=== PATIENT | male | born 1945 | race Caucasian/White ===

== ENCOUNTER 2017-01-29 17:26 | Emergency (ER) | payer MEDICARE ==
[~2017-01-29] VITALS: Ht 185.4 cm; Wt 103.6 kg
[~2017-01-29 17:26] MED LIST: ACIT25CA PO; ADAL40KI SQ; AMLO5TAB2 PO; ASPI-973 PO; CLOB15CR2 TP; FINA5TAB9 PO; HYDR25TA4 PO; OXYB5TAB PO; SIMV20TA4 PO; TERA10CA5 PO
[2017-01-29 17:43] VITALS: BP 175/81; PULSE 73; RESP 20; O2SAT 98
--- NOTE | 2017-01-29 18:33 | ED.REPORT ---
HPI-Abd Pain M 40 and Over Date of Service Jan 29, 2017 ED Provider: Andrade Forrester DO A 71 year old male with a history of enlarged prostate, diverticulitis and aortic aneurysm presents to the ED complaining of hematuria. The pt noticed clear urine with blood clots one week ago, and the hematuria has been worsening since. He is concerned that he may have a UTI. The pt denies abdominal or back pain. Nursing Notes Stated Complaint: POSS UTI/PEEING BLOOD CLOTS Chief Complaint: Male Abdominal Pain Nursing Notes Reviewed: Yes Allergies: Coded Allergies: lisinopril (Verified Allergy, Severe, ANGIOEDEMA, 01/29/17) Scheduled Acitretin (Acitretin) 25 Mg Capsule 25 MG PO DAILYWD Amlodipine (Amlodipine) 5 Mg Tablet 5 MG PO DAILY Aspirin (Aspirin) 81 Mg Tablet 81 MG PO DAILY Clobetasol Propionate (Clobetasol Propionate) 15 Gm Cream..g. 1 APPLIC TP BID Finasteride (Finasteride) 5 Mg Tablet 5 MG PO DAILY Hydrochlorothiazide (Hydrochlorothiazide) 25 Mg Tablet 25 MG PO DAILY Oxybutynin Chloride ER (Oxybutynin Chloride ER) 5 Mg Tab.er.24 5 MG PO DAILY Simvastatin (Simvastatin) 20 Mg Tablet 20 MG PO HS Terazosin (Terazosin) 10 Mg Capsule 10 MG PO HS Miscellaneous Medications Adalimumab (Humira) 40 Mg/0.8 Ml Kit 40 MG SQ WEEKLY General Time Seen by MD: 18:32 Chief Complaint Other (Hematuria) Hx Obtained From: Patient Arrived By: Walk-in Sudden in Onset?: No Onset Occurred: 1 week ago Recent Healthcare: No recent hospitalization, Recent doctor visit Similar Sx Previous: Yes Past Medical History Past Medical History psoriasis enlarged prostate diverticulitis aortic aneurysm - monitored Past Surgical History Stent placed Family History Noncontributory Smoking History Former Smoker Social History Other Social History: Ambulatory Status Independent Review of Systems Respiratory: Denies: Non-productive cough, Shortness of breath Cardiovascular: Denies: Chest pain GI: Denies: Abdominal pain, Vomiting Male: Reports Hematuria, Denies Flank pain Musculoskeletal: Denies: Back pain, Neck pain Complete sys rev & neg: except as marked. Physical Exam Initial Vital Signs Vital Signs (First) Date Time Temp Pulse Resp B/P Pulse Ox O2 Delivery O2 Flow Rate FiO2 01/29/17 17:43 36.7 73 20 175/81 98 Room Air Initial VS: Reviewed General/Constitutional: Awake, Alert Respiratory / Chest: Atraumatic, Breath sounds NL, Breath sounds = bilat, No respiratory distress Cardiovascular: Heart rate NL, Regular rhythm, Heart sounds NL Abdomen: Atraumatic, Soft, Non-tender Back: Atraumatic, Full range of motion Head / Eyes: Atraumatic, Normocephalic, PERRL, EOMI ENT: Atraumatic, Airway patent, Mucous membranes moist Skin: Atraumatic, Color NL, No rash, Warm, Dry Neurologic: Oriented X3, Speech NL, No motor deficits, No sensory deficits Neck: Atraumatic, Supple, Full range of motion Upper Extremity / MS: Atraumatic, Full range of motion Lower Extremity / Pelvis / MS: Atraumatic, Full range of motion Psychiatric: Affect NL, Mood NL Interpretation & Diagnostics Interpretation & Diagnostics: CT KUB: IMPRESSION: 1. No renal stone hydronephrosis. 2. There is a 12 mm stone within the bladder. 3. Markedly enlarged prostate. 4. Cholelithiasis. No evidence for acute cholecystitis. 5. Diverticulosis. No acute diverticulitis. 6. A large amount of stool in colon. 7. Mild infrarenal abdominal aortic aneurysm measuring 3.2 cm in diameter. 8.. Extensive atherosclerosis. There is bilateral iliac artery stenosis. 9. Small pericardial effusion. 10. Small hiatal hernia. Dictated by: Quinton Hart M.D. on 01/29/2017 at 20:17 Approved by: Quinton Hart M.D. on 01/29/2017 at 20:29 Lab Results Interpretation Result Diagram: 01/29/17 1900 01/29/17 1900 Test 01/29/17 18:37 01/29/17 19:00 Urine Color Dark yellow (YELLOW) Urine Appearance Turbid (CLEAR,HAZY) Urine pH 5.5 (5.0-8.0) Urine Specific [place] 1.026 (1.003-1.035) Urine Protein 30mg/dL (NEG,TRACE) Urine Glucose (UA) Negativemg/dL (NEGATIVE) Urine Ketones Tracemg/dL (NEGATIVE) Urine Occult Blood Large (NEGATIVE) Urine Nitrite Negative (NEGATIVE) Urine Bilirubin Negative (NEGATIVE) Urine Urobilinogen Normalmg/dL (NORMAL) Urine Leukocyte Esterase Large (NEGATIVE) Urine RBC 3-10/hpf (0-2) Urine WBC >50/hpf (0-5) Urine Epithelial Cells Few/hpf (NONE-MOD) Urine Crystals None seen (NONE SEEN) Urine Bacteria Many/hpf (NONE-FEW) Urine Hyaline Casts None/lpf (NONE) Urine Granular Casts None seen (NONE SEEN) Urine Waxy Casts None seen (NONE SEEN) Urine Red Blood Cell Casts None seen (NONE SEEN) Urine White Blood Cell Casts None seen (NONE SEEN) Urine Mucus None seen (None Seen) Urine Trichomonas None seen (NONE SEEN) Urine Yeast None (NONE SEEN) Urinalysis Comment None Urine Culture Reflexed Indicated White Blood Count 7.7th/mm3 (3.8-10.1) Red Blood Count 5.15mil/mm3 (4.40-5.80) Hemoglobin 14.9g/dL (13.8-17.2) Hematocrit 43.2% (41.0-50.0) Mean Corpuscular Volume 83.9fL (81-100) Mean Corpuscular Hemoglobin 28.9pg (27.0-35.0) Mean Corpuscular Hemoglobin Concent 34.5% (32.0-37.0) Red Cell Distribution Width 14.2% (12.3-15.4) Platelet Count 268bil/L (150-400) Neutrophils (%) (Auto) 64.9% (40-74) Lymphocytes (%) (Auto) 22.6% (14-46) Monocytes (%) (Auto) 8.0% (4-12) Eosinophils (%) (Auto) 3.5% (0-5) Basophils (%) (Auto) 0.4% (0-3) Sodium Level 142mEq/L (134-144) Potassium Level 4.1mEq/L (3.5-5.2) Chloride Level 99mEq/L (97-108) Carbon Dioxide Level 25mmol/L (18-29) Blood Urea Nitrogen 25mg/dL (8-27) Creatinine 1.28mg/dL (0.76-1.27) Estimat Glomerular Filtration Rate 59mL/min (>59) Glucose Level 135mg/dL (60-99) Calcium Level 10.3mg/dL (8.5-10.1) Total Bilirubin 0.3mg/dL (0.0-1.2) Aspartate Amino Transf (AST/SGOT) 41U/L (0-50) Alanine Aminotransferase (ALT/SGPT) 56U/L (0-44) Alkaline Phosphatase 64U/L (25-160) Total Protein 7.7g/dL (6.4-8.4) Albumin 4.2g/dL (3.4-5.0) Hold Claudio Top Tube Received (Received) Pulse Oximetry Interpretation Pulse Oximetry Interpretation: 98% on room air Pulse Oximetry: Pulse Ox normal Re-Eval/Medical Decision Med Decision/Clinical Course Diagnostics are consistent with cystitis and possibly prostatitis. First dose of IV antibiotics infused. I consulted with the on-call physician for Dr. Carrero. We will treat with twice a day ciprofloxacin. I gave E ciprofloxacin warnings including the tendinopathy and Clostridium difficile. Due to the fact that he is sure of prostate disease and he may walk prostatitis I felt this antibiotic is indicated for its capabilities to penetrate the prostate. I do recommend close follow-up with his urologist this week. Source of Hx: Old records Time of Eval: 21:01 Patient Status: Condition improved Re-Evaluation/Progress Note: Pt rechecked, who is comfortable. The diagnosis and plan for discharge are discussed. The pt understands and agrees with the plan. All questions are addressed at this time. Consultation : Call Returned at: 21:24 [employer]: Agrees with eval Note: Spoke with the doctor wall covering contractor for Dr. Neri, pt's PCP, regarding pt's case. Dr. Neri will be informed of the pt's condition. Counseled Regarding: Diagnosis, Lab results, Need for follow-up, When/why to return to ED Discharge & Departure Primary Impression: Urinary tract infection Urinary tract infection type: site unspecified Hematuria presence: with hematuria Qualified Code: N39.0 - Urinary tract infection, site not specified Additional Impression: Bladder stone Disposition: Home Vital Signs - All Vital Signs Date Time Temp Pulse Resp B/P Pulse Ox O2 Delivery O2 Flow Rate FiO2 01/29/17 21:26 36.7 70 16 147/57 97 Room Air 01/29/17 17:43 36.7 73 20 175/81 98 Room Air )( All Prior VS Reviewed: Yes Condition: Stable Patient Instructions: Urinary Tract Infection in Men (ED) Additional Instructions: Take Cipro twice daily for 10 days. Stop taking this medication if you develop joint tenderness or pain because it can be associated with joint rupture. Discontinue the medication if you develop diarrhea. Follow up on your urine culture this week. Call you primary care physician in the morning to arrange this appointment. Also call Dr. Gunderson in the morning to arrange a follow up appointment this week. Follow up on your CT scan results during this appointment. Return to the emergency department if you develop any new or worsening symptoms. Referrals: Wellington Neri MD (PCP) Evette Gunderson MD, Elizabeth A MD Scribe Attestation Portions of this note were transcribed by Eric Simms. I, Dr. Forrester personally performed the history, physical exam and medical decision-making; I reviewed and confirmed the accuracy of the information in the transcribed note. Signed by: Eli Hartman, 01/29/2017 and 2118. copies to: Evette Gunderson MD; Glenna Oviedo MD; Wellington Neri MD, Todd P DO Jan 29, 2017 18:33 ERIC SIMMS Jan 29, 2017 18:47
[2017-01-29 19:10] LABS: BASOPHILS % (AUTO) 0.4 % (0-3); EOSINOPHILS % (AUTO) 3.5 % (0-5); Mean Corpuscular Hemoglobin 28.9 pg (27.0-35.0); Mean Corpuscular Volume 83.9 fL (81-100); NEUTROPHILS % (AUTO) 64.9 % (40-74); Platelet Count 268 bil/L (150-400)
[2017-01-29 19:21] LABS: APPEARANCE,URINE TURBID (CLEAR,HAZY); COLOR,URINE DARK YELLOW (YELLOW); OCCULT BLOOD,URINE LARGE (NEGATIVE); PH,URINE 5.5 (5.0-8.0); UROBILINOGEN,URINE NORMAL (NORMAL)
[2017-01-29] MEDS ORDERED: cefTRIAXone Inj 2,000 MG in Dextrose 5% Minibag Plus 50 ML IV ONE (19:30)
--- NOTE | 2017-01-29 20:31 | DRSVH ---
PROCEDURE: CT KUB ([id number]) INDICATIONS: hematuria TECHNIQUE: Noncontrast 5 mm thick sections acquired from the diaphragms to the symphysis. 5 mm thick coronal an d sagittal reformats were then performed. For radiation dose reduction, the following was used: aut omated exposure control, adjustment of mA and/or kV according to patient size. COMPARISON: None. FINDINGS: Image quality: Excellent. Lung bases: A couple groundglass nodules are seen in the right lower lobe measuring 1.1 cm. Heart si ze is normal. There is a small pericardial effusion. Coronary calcification consistent with atherosc lerosis. Small hiatal hernia. Urinary system: Both kidneys are normal in size. No kidney stones. No hydronephrosis or perinephri c fat stranding. Both ureters appear non-dilated throughout their expected courses. Bladder wall th ickness is normal; no calcified bladder stones. Prostate is enlarged. There is a 12 mm calcific dens ity in the left bladder base, consistent with a urinary stone. Markedly enlarged prostate. Other solid organs: Liver and spleen are normal in size. Gallbladder is contains gallstones. No CT evidence for acute cholecystitis. Pancreas is normal in contours. No adrenal nodules. Peritoneum and bowel: Unenhanced bowel loops demonstrate normal wall thickness and caliber. There a re numerous colonic diverticula. No active diverticulitis. A large amount of stool in colon. No free fluid or air. Nodes and vessels: No retroperitoneal or mesenteric adenopathy by size criteria. There is infrarena l abdominal aortic aneurysm measuring 3.2 cm. There is severe atherosclerosis in the abdominal aorta and iliac arteries. There is a stent in the left common iliac artery. Bilateral iliac artery stenosis . Abdominal wall: No ventral hernias. Pelvis: No free pelvic fluid. No inguinal hernias or adenopathy. Bones: No suspicious bony lesions. No vertebral body compression fractures. Severe degenerative di sc disease in lumbar spine. IMPRESSION: 1. No renal stone hydronephrosis. 2. There is a 12 mm stone within the bladder. 3. Markedly enlarged prostate. 4. Cholelithiasis. No evidence for acute cholecystitis. 5. Diverticulosis. No acute diverticulitis. 6. A large amount of stool in colon. 7. Mild infrarenal abdominal aortic aneurysm measuring 3.2 cm in diameter. 8.. Extensive atherosclerosis. There is bilateral iliac artery stenosis. 9. Small pericardial effusion. 10. Small hiatal hernia. Dictated by: Quinton Hart M.D. on 01/29/2017 at 20:17 Approved by: Quinton Hart M.D. on 01/29/2017 at 20:29
[2017-01-29 21:26] VITALS: BP 147/57; PULSE 70; RESP 16; O2SAT 97
[2017-02-28] MEDS ORDERED: SIMV20TA4 PO (09:59)
[2017-02-28] MEDS ORDERED: CLOB15CR2 TP (09:59)
[2017-02-28] MEDS ORDERED: METF1000 PO (09:59)
[2017-02-28] MEDS ORDERED: USTE90DI SQ (09:59)
[2017-02-28] MEDS ORDERED: HYDR25TA4 PO (09:59)
[2017-02-28] MEDS ORDERED: TERA10CA5 PO (09:59)
[2017-02-28] MEDS ORDERED: NITR-66 PO (09:59)
[2017-02-28] MEDS ORDERED: AMLO5TAB2 PO (09:59)
[2017-02-28] MEDS ORDERED: FINA5TAB2 PO (09:59)
[2017-02-28] MEDS ORDERED: OXYB5TAB PO (09:59)
[2017-02-28] MEDS ORDERED: ASPI-973 PO (09:59)
== END 2017-01-29 21:27 | disposition home or self-care (01) ==
LOC: SED 17:26
DX: N30.91 Cystitis, unspecified with hematuria (principal); N21.0 Calculus in bladder; B95.2 Enterococcus as the cause of diseases classified elsewhere; N40.0 Benign prostatic hyperplasia without lower urinary tract symptoms; I71.4 Abdominal aortic aneurysm, without rupture; I10 Essential (primary) hypertension; E78.5 Hyperlipidemia, unspecified; E11.9 Type 2 diabetes mellitus without complications; Z87.891 Personal history of nicotine dependence; Z87.19 Personal history of other diseases of the digestive system; Z79.82 Long term (current) use of aspirin; Z88.8 Allergy status to other drugs, medicaments and biological substances
CPT/HCPCS: 36415; 74176; 80053; 81000; 85025; 87077; 87086; 87088; 87186; 96365; 99285; J0696

== ENCOUNTER 2017-03-03 05:41 | Day surgery (SDC) | payer MEDICARE ==
[~2017-03-03] VITALS: Ht 185.4 cm; Wt 105.3 kg
[~2017-03-03 05:41] MED LIST changes: -ACIT25CA PO; -ADAL40KI SQ; +FINA5TAB2 PO; -FINA5TAB9 PO; +METF1000 PO; +NITR-66 PO; +USTE90DI SQ
[2017-03-03] MEDS ORDERED: Ketamine 10 mg/mL 20 mL Inj ONE (05:42)
[2017-03-03] MEDS ORDERED: Ondansetron 2 mg/mL 2 mL Inj ONE (05:42)
[2017-03-03] MEDS ORDERED: Propofol 10,000 mCg/mL 20 mL Inj ONE (05:42)
[2017-03-03] MEDS ORDERED: fentaNYL-PF 50 mCg/mL 2 mL Inj ONE (05:42)
[2017-03-03] MEDS: Lactated Ringer's 1,000 ML IV SCH ×2 (05:47→07:18)
[2017-03-03] MEDS ORDERED: Levofloxacin 500 mg/100 mL D5W IV ONE (06:00)
[2017-03-03 06:16] VITALS: BP 153/70; PULSE 70; RESP 18; O2SAT 97
[2017-03-03] MEDS ORDERED: Lactated Ringer's 1,000 ML IV SCH (07:12)
[2017-03-03] MEDS ORDERED: Lactated Ringer's 500 ML IV PRN (07:12)
--- NOTE | 2017-03-03 07:12 | PCM.HPANE ---
Patient Data Surgeon Admitting Provider: Attending Provider:Evette Gunderson MD Primary Care Physician:Wellington Neri MD Other Provider:Jamilah Flower Anesthesia Reason for Visit Bladder Stone Ht/WT & BMI Height (Feet): 6 Height (Inches): 1.00 Weight (Kilograms): 105.3 Body Mass Index 30.00 Allergies Coded Allergies: lisinopril (Verified Allergy, Severe, ANGIOEDEMA, 02/28/17) Past Anesthesia History Anesthesia History: Denies:: Abnormal Airway, Anesthesia Reactions, Difficult Intubation, Fam Anesthesia Reaction, Fam Malignant Hypertherm, Malignant Hyperthermia Diabetes History Hx Diabetes?: Yes Type of Diabetes: Type II Glycemic Control: Oral Medication Current Bedside Blood Glucose: 132 MRSA MRSA: No Medications Blood Thinner: Aspirin Hypertension Medication: Yes Home Meds Incl Beta Alonzo: No Reported Medications Nitrofurantoin Macrocrystal (Macrodantin)100 Mg [id number] Mg PO BID Ref 0 02/28/17 Terazosin 10 Mg Whwplzh88 Mg PO HS Ref 0 02/28/17 Simvastatin 20 Mg Yeymqa89 Mg PO HS Ref 0 02/28/17 Finasteride (Proscar)5 Mg Tablet5 Mg PO DAILY 30 Days 02/28/17 Oxybutynin Chloride ER 5 Mg Tab.er.245 Mg PO DAILY Ref 0 02/28/17 Metformin (Glucophage)1,000 Mg Tablet1,000 Mg PO BID Ref 0 02/28/17 Hydrochlorothiazide 25 Mg Mhqjqf37 Mg PO DAILY 30 Days Ref 0 02/28/17 Aspirin 81 Mg Zggxhq24 Mg PO DAILY Ref 0 02/28/17 Clobetasol Propionate 15 Gm Cream..g.15 Gm TP BID 02/28/17 Ustekinumab (Stelara)90 Mg/1 Ml Jzjbmyp39 Mg SQ l7pyafv 02/28/17 Amlodipine 5 Mg Tablet5 Mg PO DAILY Ref 0 02/28/17 Discontinued Reported Medications Oxybutynin Chloride ER 5 Mg Tab.er.245 Mg PO DAILY Ref 0 04/12/16 Clobetasol Propionate 15 Gm Cream..g.1 Applic TP BID 04/12/16 Acitretin 25 Mg Ksupark36 Mg PO DAILYWD 04/12/16 Hydrochlorothiazide 25 Mg Tioljr93 Mg PO DAILY 30 Days Ref 0 03/18/15 Aspirin 81 Mg Hxktwo89 Mg PO DAILY Ref 0 8/12/15 Simvastatin 20 Mg Bkqxus57 Mg PO HS Ref 0 03/18/15 Amlodipine 5 Mg Tablet5 Mg PO DAILY 30 Days Ref 0 10/06/14 Adalimumab (Humira)40 Mg/0.8 Ml Kit40 Mg SQ WEEKLY 10/06/14 Terazosin 10 Mg Slbgeia29 Mg PO HS 30 Days Ref 0 10/06/14 Finasteride 5 Mg Tablet5 Mg PO DAILY 30 Days Ref 0 10/06/14 History History of ENT Problems?: No HEENT History: Positive for:: Cataracts (surgery scheduled ) Hearing Problem Denies:: Abnormal Airway Difficult Intubation Dysphagia Sinus Problem TMJ Denture Type: Full- Upper Full- Lower Teeth Condition: No Teeth Hx of Heart Problems?: Yes Cardiovascular History: Positive for:: Abdominal Aortic Aneurism (followed by cardio- "stable" per 2017 note) Heart Murmur (slight murmur- dr lenz monitors) Hypertension Peripheral Vascular (stent to left iliac) Valvular Heart Disease (echo 2014- ef 60%) Denies:: AICD Atrial Fibrillation Chest Pain Congestive Heart Failure Irregular Heartbeat Pacemaker Hx of Respiratory Problem?: No Respiratory History: Denies:: Asthma COPD Cough Hemoptysis Oxygen Administration Pneumonia Tuberculosis Use of C-PAP Machine Hx Neurologic Problems?: No Neurological History: Denies:: CVA Dementia Multiple Sclerosis Parkinson's Disease Seizures Hx of GI Problems?: Yes Hx of Problems?: Yes Genitourinary History: Positive for:: Kidney Stones (bladder stone current admission problem) Urinary Tract Infection (r/t bladder stone- on nitrofurantoin) Male Hx: Positive for:: Prostate Problems (hx of TURP) Denies:: Scrotal Mass Testicular Surgery Skin History: Positive for:: History Skin Disorders? (on stelara for psoriasis ) Denies:: Pressure Ulcers Hx Musculoskeletal Problems?: Yes Musculoskeletal History: Positive for:: Musculoskeletal Trauma (prior hx ortho fx) Osteoarthritis (psoriatic arthritis) Denies:: Back Injury (occ back pain) Fibromyalgia Joint Replacement Myasthenia Gravis Systemic Lupus Hx of Psycho/Social Problems?: No Psycho Social History: Denies:: Anxiety Hx Depression Hx Surgeries?: Yes (TURP ) Hx Any Other Health Problems?: Yes Other History: Positive for:: Hospitalization Thyroid Disease (hx of benign bx) Denies:: Cancer Endocrine Disease History Blood Transfusions: Positive for:: Accept Blood Products? Denies:: Blood Transfusions Hx Diabetes: YesBedside Blood Glucose: 132 Hx Alcohol Use: NoHx Substance Use: No Smoking Status: Former Smoker Have You Smoked inLast 12 mo: No Stop/Bang Treated for Sleep Apnea?: No Do You Have a CPAP Machine?: No S-Snoring: Do You Snore Loudly: No T-Tired: feel tired, fatigued: No O-Obsered: Observed not breath: No B- Body Mass Index > 35 kg/m2: No A- Age over 50: Yes N- Neck Large Circumference: No G- Gender Male: Yes INDY Risk Assessment: Low Risk, <3 Yes Risk Assessment Category Category 1A: Patient has history of documented sleep apnea, and HAS NOT received any narcotic, sedative or anesthesia administration during this stay. Category 1B: Patient has history of documented sleep apnea, and HAS received any narcotic , sedative or anesthesia administration during this stay Category 2: Patient has SUSPECTED Obstructive Sleep Apnea, and HAS received any narcotic , sedative or anesthesia administration during this stay. Category 3: Patient has SUSPECTED Obstructive Sleep Apnea and HAS NOT received narcotic, sedative or anesthesia administration during this stay. Category 4: Outpatient in Procedural Areas with known sleep apnea or who screen positive for High Risk via the STOP/BANG questionnaire. Exam Exam Vital Signs Vital Signs Date Time Temp Pulse Resp B/P Pulse Ox O2 Delivery O2 Flow Rate FiO2 03/03/17 06:16 36.2 70 18 153/70 97 Room Air General Appearance: Alert, Oriented X3, Cooperative, No Acute Distress HEENT/AIRWAY: MP 2 Lungs: Clear to Auscultation, Normal Air Movement Heart: Exam Unremarkable, Regular Rate/Rhythm, No Murmurs/Rubs/Gallops Meds/Labs/Diagnostics Admission Meds Current Medications Lactated Ringer's (Lr) 1,000 ml @ 120 mls/hr Q8H20M IV Last administered on t 05:47; Start 03/03/17 at 05:00; Stop 03/03/17 at 13:19 Bedside Blood Glucose: 132 Plan Impression Patient chart reviewed, patient interviewed and anesthestic plan with risks, benefits, and alternatives discussed, and informed consent obtained. ASA Physical Status: ASA2 Mod Systemic Disease Anesthetic Plan: GA, MAC Bene/Risks/Altern/Consents: Yes HP Complete Prior to Induction: Yes Troy Frances MD Mar 03, 2017 07:12
[2017-03-03] MEDS ORDERED: EPHEDrine Sulfate 50 mg/mL Inj IVPUSH PRN (07:15)
[2017-03-03] MEDS ORDERED: fentaNYL-PF 50 mCg/mL 2 mL Inj IVPUSH PRN (07:15)
[2017-03-03] MEDS ORDERED: HYDROmorphone 1 mg/mL Inj IVPUSH PRN (07:15)
[2017-03-03] MEDS ORDERED: Phenylephrine 10,000 mCg/mL Inj IVPUSH PRN (07:15)
[2017-03-03] MEDS ORDERED: MetoCLOpramide 5 mg/mL 2 mL Inj IVPUSH PRN (07:15)
[2017-03-03] MEDS ORDERED: Ondansetron 2 mg/mL 2 mL Inj IVPUSH PRN (07:15)
[2017-03-03] MEDS ORDERED: Dexamethasone 4 mg/mL Inj IVPUSH PRN (07:15)
[2017-03-03 07:45] VITALS: BP 132/67; PULSE 58; RESP 16; O2SAT 93
[2017-03-03] MEDS ORDERED: HYDROcodone-APAP 5-325 mg Tablet PO PRN (07:55)
[2017-03-03 08:17] VITALS: BP 150/66; PULSE 61; RESP 18; O2SAT 95
--- NOTE | 2017-03-03 08:26 | PCM.ANEP1 ---
Post Anesthesia PACU Phase 1 Assessment Vital Signs Vital Signs Date Time Temp Pulse Resp B/P Pulse Ox O2 Delivery O2 Flow Rate FiO2 03/03/17 08:17 36.4 61 18 150/66 95 Room Air 03/03/17 07:45 36.5 58 16 132/67 93 Room Air 03/03/17 06:16 36.2 70 18 153/70 97 Room Air Anesthetic Administered: GA Level of Alertness: Awake, talking NOWAK's with Equal Strength: Yes Pain: No Nausea or Vomiting: No CV Function & Hydration Stable: Yes Airway Device: natural Oxygen Delivery: Nasal Cannula Lungs: Clear to Auscultation, Normal Air Movement Dermatome Level: Full Sensation PACU Phase 2 Assessment Complications: No Follow up Care: No Patient Instructions Provided: N/A Troy Frances MD Mar 03, 2017 08:26
--- NOTE | 2017-03-05 01:07 | OP ---
[address] [address] OPERATIVE REPORT PATIENT: SARMAD STRANGE : 1945 MR#: [id number] ADMIT: 03/03/2017 JOB ID: [id number] DATE OF SURGERY: 03/03/2017 PREOPERATIVE DIAGNOSIS(ES): Small bladder calculus. POSTOPERATIVE DIAGNOSIS(ES): Small bladder calculus. PROCEDURE: Cystolitholapaxy. SURGEON: Evette Gunderson MD ANESTHESIA: General. INDICATIONS: The patient is a 71-year-old gentleman with a longstanding history of lower urinary tract symptoms, history of TURP, large median lobe, presenting with urinary tract infection and small bladder calculus unable to be removed in the clinic, loosened up in the clinic. However, we could not evacuate pieces. Thus, he was brought to the operating room for anesthetic procedure. PROCEDURE IN DETAIL: After appropriate informed consent was obtained, the patient was brought to the operating room. He received IV antibiotics culture directed prior to onset of procedure. SCDs were placed. Adequate general anesthesia induced. He was carefully placed in dorsal lithotomy position. All pressure points carefully padded. Cleaned, prepped, and draped in the usual sterile fashion. A 55 rigid scope was introduced into the patient's bladder. We irrigated out with the Ellik. Several small fragments were removed. This was smaller than 1 cm in total size. Bladder was clear at termination of the procedure. The patient tolerated this very well. Was awakened, taken in stable condition to the postanesthesia care unit.
== END 2017-03-03 23:59 | disposition home or self-care (01) ==
LOC: SAS 05:41
PROVIDERS: ATTEND Urology
PROC: 0TCB8ZZ Extirpation of Matter from Bladder, Via Natural or Artificial Opening Endoscopic (ICD-10-PCS; principal; 2017-03-03 07:30)
DX: N21.0 Calculus in bladder (principal); N39.0 Urinary tract infection, site not specified; N40.1 Benign prostatic hyperplasia with lower urinary tract symptoms; N39.41 Urge incontinence; E11.9 Type 2 diabetes mellitus without complications; I10 Essential (primary) hypertension; Z87.440 Personal history of urinary (tract) infections; Z79.82 Long term (current) use of aspirin; Z79.84 Long term (current) use of oral hypoglycemic drugs; Z86.73 Personal history of transient ischemic attack (TIA), and cerebral infarction without residual deficits; L40.9 Psoriasis, unspecified; Z87.891 Personal history of nicotine dependence
CPT/HCPCS: 52317; J2250; J2405; J3010; J7120